=== PATIENT | male | born 1980 | race Caucasian/White ===

== ENCOUNTER 2016-09-29 11:53 | Inpatient (IN) | payer OTHER ==
[~2016-09-29] VITALS: Ht 172.7 cm; Wt 89.0 kg
[~2016-09-29 11:53] MED LIST: LEVE-5 PO
[2016-09-29] MEDS ORDERED: LORAZEPAM 2 MG INJ ONE (11:57)
[2016-09-29] MEDS ORDERED: LORAZEPAM 2 MG INJ IM ONE (12:00)
--- NOTE | 2016-09-29 12:03 | ERA ---
ER Documentation Chief Complaint Date/Time DATE: 09/29/16 TIME: 11:56 Chief Complaint HPI 35-year-old male long-standing seizure disorder who presents the emergency room with 2 seizures today. Unknown last seizure. The patient has been on Keppra in the past based on electronic medical record but states that he is no longer taking Keppra. The patient is postictal and somewhat combative upon arrival. Family member not here yet. The patient's glucose in the field was normal. It appears that he did in fact have 2 seizures today but returned to baseline in between. Remainder of HPI is limited. ROS Postictal Medications Home Meds Reported Medications Zonisamide* (Zonisamide*) 100 Mg Capsule, 300 MG PO DAILY, CAP 09/29/16 Discontinued Scripts Levetiracetam* (Keppra*) 500 Mg Tablet, 500 MG PO BID, #60 TAB Prov:SORIN VAN MD 09/03/15 Allergies Allergies: Coded Allergies: ibuprofen (Verified Allergy, Intermediate, HIVES, 12/30/15) naproxen (Verified Allergy, Intermediate, HIVES, 12/30/15) PMhx/Soc History of Surgery: No Anesthesia Reaction: No Hx Neurological Disorder: Yes (seizure) Hx Respiratory Disorders: No Hx Cardiac Disorders: No Hx Psychiatric Problems: No Hx Miscellaneous Medical Probl: No Hx Alcohol Use: No Hx Substance Use: No Hx Tobacco Use: No FmHx Family History: No diabetes Physical Exam Vitals Vital Signs Date Time Temp Pulse Resp B/P Pulse Ox O2 Delivery O2 Flow Rate FiO2 09/29/16 12:18 98.4 113 22 134/76 100 Room Air 09/29/16 11:58 98.8 113 22 134/74 98 Physical Exam General: Postictal, somewhat combative, asking for water, following simple commands Head: Normocephalic, atraumatic. Eyes: Pupils equally reactive, EOM intact ENT: Moist mucous membranes Neck: Supple, no lymphadenopathy Respiratory: Lungs clear bilaterally, no distress Cardiovascular: RRR, no murmurs, rubs, or gallops Abdominal: Soft, non-tender, non-distended, no peritoneal signs : Deferred MSK: No edema, no unilateral swelling, 5/5 strength Neurologic: Alert and oriented to person, somewhat postictal, moving all extremities, normal speech, no focal weakness, no cerebellar signs Skin: No rash Psych: Normal mood Result Diagram: 09/29/16 1220 09/29/16 1155 Results 24 hrs Laboratory Tests Test 09/29/16 11:55 09/29/16 12:20 09/29/16 12:28 Sodium Level 144mmol/L Potassium Level 4.5mmol/L Chloride Level 112mmol/L Carbon Dioxide Level 12mmol/L Anion Gap 25 Blood Urea Nitrogen 11mg/dl Creatinine 1.42mg/dl Glucose Level 142mg/dl Calcium Level 8.6mg/dl Phenytoin (Dilantin) Level < 3.0ug/ml Valproic Acid (Depakene) Level < 10ug/ml Carbamazepine (Tegretol) Level < 3.0ug/ml White Blood Count 20.910^3/ul Red Blood Count 5.4710^6/ul Hemoglobin 16.1g/dl Hematocrit 48.7% Mean Corpuscular Volume 89.0fl Mean Corpuscular Hemoglobin 29.4pg Mean Corpuscular Hemoglobin Concent 33.1g/dl Red Cell Distribution Width 13.3% Platelet Count 55521^3/UL Mean Platelet Volume 12.2fl Neutrophils % 83.1% Lymphocytes % 9.7% Monocytes % 5.7% Eosinophils % 0.2% Basophils % 0.3% Nucleated Red Blood Cells % 0.0/100WBC Neutrophils # 17.310^3/ul Lymphocytes # 2.010^3/ul Monocytes # 1.210^3/ul Eosinophils # 0.110^3/ul Basophils # 0.110^3/ul Nucleated Red Blood Cells # 0.010^3/ul Bedside Glucose 128mg/dL Current Medications Medications (Trade) Dose Ordered Sig/John Route PRN Reason Start Time Stop Time Status Last Admin Dose Admin Lorazepam 1 mg 1 mg ONCE ONCE IM 09/29/16 12:00 09/29/16 12:01 DC 09/29/16 11:59 Phenytoin 1000 mg/ Sodium Chloride 100 ml @ 200 mls/hr ONCE STAT IVPB 09/29/16 14:35 09/29/16 15:04 Sodium Chloride (NS) 1,000 ml @ 1,000 mls/hr Q1H STAT IV 09/29/16 14:54 09/29/16 15:53 Procedures/MDM LAB INTERPRETATION: Leukocytosis, mild renal insufficiency MEDICAL DECISION MAKING: The patient presents to the emergency room with 2 seizures today that are very consistent with his prior seizure history and generalized tonic-clonic seizure with spontaneous resolution. Accu-Chek normal. This is likely a breakthrough seizure, consider medication noncompliance. His electronic medical records suggest Keppra but the patient states that he is no longer taking Keppra. He does not know the name of the medication that he is taking. The patient cannot give further history and no further history is obtained in the electronic medical record. Electrolytes will be sent including levels for Dilantin, Depakote, carbamazepine. We do not have Keppra levels readily available in the emergency room. The patient was given 1 mg of Ativan IM for seizure prophylaxis. Seizure precautions initiated. No signs of increased intracranial pressure or infectious process such as meningitis. No indication for CBC lumbar puncture or CT imaging of the brain. ER COURSE: The patient's has arrived and states that the patient is taking zonisamide. He has compliance with his medications. His last seizure was March. He had 3 seizures today but returned to baseline. Given the frequency of seizures, this is atypical and I would recommend hospitalization. Dilantin load. The patient did have leukocytosis but no fever no recent signs of infection he has no meningismus on exam. This is likely secondary to demargination in the setting of seizure. No signs of infection currently. The patient was given IV fluids and continues to be resting comfortably. I kept the patient and/or family informed of laboratory and diagnostic imaging results throughout the emergency room course. DISPOSITION PLAN: Medical surgical admission for management of seizure CONSULTATION: Accepting care team and consultations: I discussed the current laboratory data, diagnostic imaging and emergency care provided. Admitting team: Dr. Young Admitting team indication: Insurance directed Departure Diagnosis: Primary Impression: Generalized tonic-clonic seizure Additional Impressions: Mild dehydration Acute renal insufficiency Leukocytosis Qualified Code: D72.829 - Leukocytosis, unspecified type Condition: Stable ALEX ROSE MD Sep 29, 2016 12:03
[2016-09-29 13:05] LABS: ANION GAP 25 (8-16); BLOOD UREA NITROGEN 11 mg/dl (7-20); CALCIUM 8.6 mg/dl (8.4-10.2); CARBON DIOXIDE 12 mmol/L (21-31); CHLORIDE 112 mmol/L (97-110); CREATININE 1.42 mg/dl (0.61-1.24); GLUCOSE 142 mg/dl (70-220); POTASSIUM 4.5 mmol/L (3.5-5.1); SODIUM 144 mmol/L (135-144)
[2016-09-29 13:10] LABS: CARBAMAZEPINE (TEGRETOL) < 3.0 ug/ml (8.0-12.0); VALPROATE < 10 ug/ml (50-100)
[2016-09-29 13:23] LABS: ADD SCAN DIFF NO
[2016-09-29 13:25] LABS: BASOPHIL # 0.1 10^3/ul (0.0-0.1); BASOPHILS % 0.3 % (0.0-2.0); EOSINOPHILS # 0.1 10^3/ul (0.0-0.5); EOSINOPHILS % 0.2 % (0.0-7.0); HEMATOCRIT 48.7 % (42.0-52.0); HEMOGLOBIN 16.1 g/dl (14.0-18.0); LYMPHOCYTES % 9.7 % (15.0-51.0); MEAN CORPUSCULAR HEMOGLOBIN 29.4 pg (29.0-33.0); MEAN CORPUSCULAR HGB CONC 33.1 g/dl (32.0-37.0); MEAN PLATELET VOLUME 12.2 fl (7.4-10.4); MONOCYTE # 1.2 10^3/ul (0.3-0.9); MONOCYTES % 5.7 % (0.0-11.0); NEUTROPHIL # 17.3 10^3/ul (1.6-7.5); NEUTROPHILS % 83.1 % (39.0-77.0); PLATELET COUNT 236 10^3/UL (140-415); RED BLOOD COUNT 5.47 10^6/ul (4.70-6.10); RED CELL DISTRIBUTION WIDTH 13.3 % (11.5-14.5); WHITE BLOOD COUNT 20.9 10^3/ul (4.8-10.8)
[2016-09-29] MEDS ORDERED: ZONI100C48 PO (13:25)
[2016-09-29] MEDS ORDERED: PHENYTOIN 1,000 MG in SOD CHLORIDE 0.9% 80 ML IVPB STA (14:35)
[2016-09-29] MEDS ORDERED: SOD CHLORIDE 0.9% 1,000 ML IV STA (14:54)
[2016-09-29 15:00] VITALS: TEMP 98
[2016-09-29] MEDS ORDERED: ACETAMINOPHEN 325 MG TAB PO PRN ×2 (15:00→17:00)
[2016-09-29] MEDS ORDERED: ONDANSETRON 4 MG INJ IV PRN ×2 (15:00→18:00)
[2016-09-29 16:45] VITALS: BP 144/90; PULSE 94; RESP 22
[2016-09-29] MEDS ORDERED: ONDANSETRON 4 MG TAB PO PRN (17:00)
[2016-09-29] MEDS ORDERED: HYDROCODONE/APAP (5/325) TAB PO PRN (17:00)
[2016-09-29] MEDS ORDERED: NACL 0.9% 3 ML SYG IV SCH (17:00)
[2016-09-29 17:03] VITALS: Ht 172.7 cm; Wt 89.0 kg
[2016-09-29] MEDS: SOD CHLORIDE 0.9% 1,000 ML IV SCH (17:56)
[2016-09-29] MEDS ORDERED: LORAZEPAM 2 MG INJ IV PRN (18:00)
--- NOTE | 2016-09-29 18:01 | HP ---
Date/Time of Note Date/Time of Note DATE: 09/29/16 TIME: 17:46 Assessment/Plan VTE Prophylaxis VTE Prophylaxis Intervention: ambulation Assessment/Plan Assessment/Plan 35 yo M with 1. Breakthrough seizures 2. hx of heavy substance use PLAN: admit / MRI / EEG / Neurology review for med mgt / PRN ativan for seizures / continue home zonisamide Utox / SW consult to help provide resources to help with substance abuse Unable to enrollment counselor patient at this time about substance use because he wants his family present at bedside and brother has requested that parents not know about substance use. Supportive care / seizure precautions. Prophylaxis : ambulation HPI/ROS Admit Date/Time Admit Date/Time Sep 29, 2016 at 14:57 Hx of Present Illness PRESENTING COMPLAINT: seizures HISTORY OF PRESENTING COMPLAINT: This is a 35-year-old male who suddenly started having seizures about 3 years ago but per reports from him and his family is finally getting them under control on a new drugs on a semi-which she was recently started on April of this year. The patient states that his seizures were unprovoked and started suddenly. For most of last year the patient had regular seizures and regular hospitalizations until he was started on this medication with good control. His last seizure was in April of this year and has not had any seizures since. Overnight stroke this morning the patient had 3 witnessed seizures by his and was brought to the emergency room for further evaluation. He is being admitted for neurology review and possible review of his medication. The patient denies history of brain tumor history of cardiac or neurologic disease, he also denies history of substance or drug use. However please see my notes and social history. The patient's brother however states that the patient heavily abuses heroine as well as cannabinoids. His is concerned that seizures may be connected to mold, as they found mold in their apartment about the time he started having seizures. He however has not have chronic cough, he has not had a chronic rhinorrhea, he has been told in the past that he may have sinus disease and per report he was never treated for this. His states that his outpatient neurologist states that the sinus disease may be contributory to his seiz he has no new symptoms at this time except for lethargy and muscle sorenessures, hence she is requesting reevaluation for this and possible treatments.. ROS 12 point review if systems was done and pertinent findings are as noted. PMH/Family/Social Past Medical History * seizure d/o x3 years Past Surgical History Past Surgical Hx: no surgical history Family History Significant Family History: no pertinent family hx (Patient has no family history of seizures) Social History Patient denies tobacco or substance abuse however his brother called me aside to notify me that the patient smokes marijuana heavily almost every minute of the day, and he does have a history of heroine use as well. His brother feels his seizures are connected to his heavy drug use. He doesn't mind being quoted. Smoking Status: Never smoker Exam/Review of Systems Vital Signs Vitals VS - Last 72 Hours, by Label Date Time Temp Pulse Resp B/P Pulse Ox O2 Delivery O2 Flow Rate FiO2 09/29/16 16:45 98.4 94 22 144/90 97 Room Air 09/29/16 15:00 98.0 110 20 122/80 100 Room Air 09/29/16 12:18 98.4 113 22 134/76 100 Room Air 09/29/16 11:58 98.8 113 22 134/74 98 Vital Signs Date Time Temp Pulse Resp B/P Pulse Ox O2 Delivery O2 Flow Rate FiO2 09/29/16 16:45 98.4 94 22 144/90 97 Room Air Exam Exam GENERAL APPEARANCE: Well developed, well nourished, in no acute distress. SKIN: Gross inspection of the skin reveals no rashes, ulcerations or petechiae. HEENT: The sclerae were anicteric and conjunctivae were pink and moist. Extraocular movements were intact and pupils were equal, round, and reactive to light with normal accommodation. External inspection of the ears and nose showed no scars, lesions, or masses. Posterior pharynx was clear of erythema or exudate NECK: Supple and symmetric. There was no thyroid enlargement, and no tenderness , or masses were felt. CHEST: Normal AP diameter and movement . LUNGS: Auscultation of the lungs revealed normal breath sounds without any other adventitious sounds or rubs. CARDIOVASCULAR: There was a regular rate and rhythm without any murmurs, gallops , rubs. The carotid pulses were normal and 2+ bilaterally without bruits. Radial pulses were 2+ and symmetric. ABDOMEN: Soft and nontender with normal bowel sounds. No ascites was noted. MUSCULOSKELETAL: There was no tenderness or effusions noted. Muscle strength and tone were normal. EXTREMITIES: No cyanosis, clubbing or edema. NEUROLOGIC: Alert and oriented x 3. Normal affect PSYCHIATRIC: depressed affect and lethargic Labs Result Diagram: 09/29/16 1220 09/29/16 1155 Medications Medications Current Medications Ondansetron HCl (Zofran Tab) 4 mg Q6H PRN PO NAUSEA AND/OR VOMITING; Start at 17:00 Acetaminophen (Tylenol Tab) 650 mg Q6H PRN PO PAIN LEVEL 1-3 OR FEVER; Start at 17:00 Acetaminophen/ Hydrocodone Bitart ([place] (5/325)) 1 tab Q6H PRN PO MODERATE PAIN LEVEL 4-6; Start 09/29/16 at 17:00 Enoxaparin Sodium (Lovenox) 40 mg DAILY SC ; Start 09/30/16 at 09:00 Zonisamide (Zonegran) 300 mg DAILY PO ; Start 09/29/16 at 18:00; Status UNWESLY KAHN Sep 29, 2016 17:57
[2016-09-29 20:20] VITALS: BP 152/89; RESP 18
[2016-09-29] MEDS: VALPROIC ACID 250 MG CAP PO SCH (21:12)
[2016-09-29] MEDS: ZONISAMIDE 100 MG CAP PO SCH (21:12)
--- NOTE | 2016-09-29 21:48 | CONS ---
DATE OF ADMISSION: 09/29/2016 DATE OF CONSULTATION: HISTORY OF PRESENT ILLNESS: The patient is a 35-year-old man. He has a past medical history of sei zure disorder in which the patient is on zonisamide 300 mg. The patient using marijuana and possibl e heroin, which I get a history from the family. The patient does not remember what medication he t akes or what happened. PHYSICAL EXAMINATION: GENERAL: On exam today, the patient is alert, awake. Looks confused. CRANIAL NERVES: II: Pupils equal on both sides, reactive to light. III, IV, and : Extraocular muscles intact. No nystagmus. V: Equal sensation to face. VII: ____. VIII: Decreased hearing bilaterally. IX, X: Elevates palate. XII: Elevates shoulder 5/5. XII: With straight tongue. MOTOR: Moving both upper and lower extremities. SENSATION: Decreased for glove and sock area. ____ temperature. COORDINATION: [id number] testing intact. HEART: With regular rate and rhythm. LUNGS: Equal breath sounds. ABDOMEN: Soft, relaxed, nondistended, no tenderness. CURRENT MEDICATIONS: Include: 1. Lovenox 40 mg subcutaneous once a day. 2. Zonisamide 300 mg once a day. 3. Ativan 2 mg every 4 hours IV as needed. 4. Zofran 4 mg every 6 hours as needed. 5. Sodium chloride as needed. 6. IV flush. 7. Tylenol 650 mg every 4 hours as needed. 8. [place] 5/325 mg every 6 hours as needed. LABORATORY DATA: His blood tests today with WBC is 20.9. Creatinine 1.4. ASSESSMENT AND PLAN: The patient is 35 years old, underlying seizure activity. 1. I am going to add to him Depakote 500 mg twice a day for seizure prevention. Follow up the bradley ent with electroencephalogram. 2. I will give the patient seizure precautions and aspiration precautions. 3. Leukocytosis. Probably secondary to underlying infection. Follow up the patient with pancultur e, chest x-ray, CBC. ____ underlying stress, increased WBC, however, will follow up the patient wit h CBC in a.m. 4. Underlying drug use. 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 Will send the urine and bloo d for drug screen. Dictated By: AYSHA GALVAN MD NA/NTS Conf#: [id number] DID#: [id number] CC: WESLY LOOMIS MD;*End*
[2016-09-29 22:13] LABS: BENZODIAZEPINES Negative (NEGATIVE); CANNABINOIDS Positive (NEGATIVE); COCAINE Negative (NEGATIVE); OPIATES Negative (NEGATIVE)
[2016-09-29 22:35] LABS: BARBITURATES Negative (NEGATIVE)
[2016-09-30] MEDS: SOD CHLORIDE 0.9% 1,000 ML IV SCH ×4 (04:00→20:07)
[2016-09-30 05:06] LABS: ADD SCAN DIFF NO
[2016-09-30 05:08] LABS: BASOPHILS % 0.2 % (0.0-2.0); EOSINOPHILS # 0.1 10^3/ul (0.0-0.5); EOSINOPHILS % 0.9 % (0.0-7.0); HEMATOCRIT 40.3 % (42.0-52.0); HEMOGLOBIN 13.8 g/dl (14.0-18.0); LYMPHOCYTES # 2.6 10^3/ul (0.8-2.9); LYMPHOCYTES % 29.3 % (15.0-51.0); MEAN CORPUSCULAR HEMOGLOBIN 29.7 pg (29.0-33.0); MEAN CORPUSCULAR HGB CONC 34.2 g/dl (32.0-37.0); MEAN CORPUSCULAR VOLUME 86.7 fl (82.0-101.0); MEAN PLATELET VOLUME 11.3 fl (7.4-10.4); MONOCYTE # 0.7 10^3/ul (0.3-0.9); MONOCYTES % 7.5 % (0.0-11.0); NEUTROPHIL # 5.4 10^3/ul (1.6-7.5); NEUTROPHILS % 61.6 % (39.0-77.0); PLATELET COUNT 157 10^3/UL (140-415); RED BLOOD COUNT 4.65 10^6/ul (4.70-6.10); RED CELL DISTRIBUTION WIDTH 13.3 % (11.5-14.5); WHITE BLOOD COUNT 8.8 10^3/ul (4.8-10.8)
[2016-09-30 05:37] LABS: ALBUMIN 4.4 g/dl (3.3-4.9); BILIRUBIN,INDIRECT 0.5 mg/dl (0-1.1); BILIRUBIN,TOTAL 0.5 mg/dl (0.2-1.3); CALCIUM 8.7 mg/dl (8.4-10.2); CHOL/HDL RATIO 4.9 RATIO; CREATININE 1.14 mg/dl (0.61-1.24); MAGNESIUM 2.4 mg/dl (1.7-2.5); POTASSIUM 3.8 mmol/L (3.5-5.1); TOTAL PROTEIN 6.7 g/dl (6.1-8.1)
[2016-09-30 06:03] LABS: THYROID STIMULATING HORMONE 0.506 MIU/L (0.465-4.680)
[2016-09-30 07:48] VITALS: BP 118/66; RESP 18
[2016-09-30] MEDS: VALPROIC ACID 250 MG CAP PO SCH ×2 (08:48→20:39)
[2016-09-30] MEDS: ZONISAMIDE 100 MG CAP PO SCH (08:50)
[2016-09-30] MEDS: ENOXAPARIN 40 MG/0.4 ML SYG SC SCH (08:59)
[2016-09-30] MEDS ORDERED: ALBUTEROL/IPRATROPIUM (NEB) 3 ML AMP HHN STA (11:06)
[2016-09-30] MEDS ORDERED: ALBUTEROL/IPRATROPIUM (NEB) 3 ML AMP HHN PRN (11:30)
--- NOTE | 2016-09-30 15:48 | RADRPT ---
PROCEDURE: MR Brain without contrast. CLINICAL INDICATION: Seizure, neurologic deficit TECHNIQUE: An MRI of the brain was performed on a high-resolution MR scanner utilizing the followi ng sequences: Sagittal and axial T1 weighted, axial T2 weighted, axial FLAIR, coronal GRE, coronal F LAIR and 3 SPGR, and axial diffusion weighted with ADC mapping. Images were reviewed high-resolution PACS workstation. No contrast was administered. COMPARISON: Correlation head CT 10/16/2015 FINDINGS: No acute parenchymal hemorrhage, mass effect, or midline shift. No evidence of recent infarct. Hobbs white differentiation is preserved. No evidence of mesial temporal sclerosis or cortical enceph alomalacia. A few tiny bilateral frontal white matter FLAIR hyperintense foci are nonspecific. No suspicious parenchymal hypointense signal abnormalities are seen on the GRE images to suggest the presence of blood degradation products. The ventricles are normal in size for age. Normal flow voids are visible in the proximal intracranial arteries suggesting their patency. Bilateral frontal, ethmoid, maxillary, and sphenoid sinus mucosal thickening. IMPRESSION: No acute intracranial abnormality identified. No evidence of mesial temporal sclerosis or cortical encephalomalacia. A few tiny bilateral frontal white matter FLAIR hyperintense foci are nonspecific. Pansinus mucosal thickening. RPTAT: AA .Valeriy Shahid MD, MD Date Time Electronically viewed and signed by .Valeriy Shahid MD, on 09/30/2016 15:48 .T/
[2016-09-30 20:00] VITALS: BP 139/87; RESP 18
[2016-09-30] MEDS ORDERED: ZONISAMIDE 100 MG CAP PO SCH (21:00)
[2016-10-01] MEDS: SOD CHLORIDE 0.9% 1,000 ML IV SCH ×4 (00:50→09:46)
[2016-10-01 06:26] LABS: ADD SCAN DIFF NO
[2016-10-01 06:29] LABS: BASOPHILS % 0.4 % (0.0-2.0); EOSINOPHILS # 0.1 10^3/ul (0.0-0.5); EOSINOPHILS % 1.7 % (0.0-7.0); HEMATOCRIT 40.5 % (42.0-52.0); HEMOGLOBIN 13.6 g/dl (14.0-18.0); LYMPHOCYTES # 2.6 10^3/ul (0.8-2.9); MEAN CORPUSCULAR HEMOGLOBIN 29.4 pg (29.0-33.0); MEAN CORPUSCULAR HGB CONC 33.6 g/dl (32.0-37.0); MEAN CORPUSCULAR VOLUME 87.5 fl (82.0-101.0); MEAN PLATELET VOLUME 11.9 fl (7.4-10.4); MONOCYTE # 0.6 10^3/ul (0.3-0.9); MONOCYTES % 8.8 % (0.0-11.0); NEUTROPHIL # 3.8 10^3/ul (1.6-7.5); NEUTROPHILS % 52.8 % (39.0-77.0); PLATELET COUNT 146 10^3/UL (140-415); RED BLOOD COUNT 4.63 10^6/ul (4.70-6.10); RED CELL DISTRIBUTION WIDTH 13.2 % (11.5-14.5); WHITE BLOOD COUNT 7.3 10^3/ul (4.8-10.8)
[2016-10-01 07:14] LABS: CREATININE 0.93 mg/dl (0.61-1.24); MAGNESIUM 2.1 mg/dl (1.7-2.5); PHOSPHORUS 3.4 mg/dl (2.5-4.9)
--- NOTE | 2016-10-01 07:42 | PN ---
DATE: 09/30/2016 SUBJECTIVE: The patient denies any seizure activity last night, does complain of some nasal irritat ion. OBJECTIVE VITAL SIGNS: Stable. GENERAL: The patient is lying in bed, family members are at the bedside. No acute distress. HEENT: Pupils equal, round, reactive to light. Extraocular muscles intact. NECK: Supple, no thyromegaly. LUNGS: Clear to auscultation bilaterally. CARDIOVASCULAR: S1, S2. No rubs or gallops. ABDOMEN: Soft, nontender, nondistended. Normal bowel sounds. No rebound or guarding. MUSCULOSKELETAL: No lower extremity edema bilaterally. NEUROLOGIC: No focal deficits. LABORATORY DATA: CBC is normal. Creatinine kinase is 1205. Comprehensive metabolic panel is sheyla l. Triglycerides are 215. The rest of the cholesterol panel is normal. His U-tox did show positive cannabis. Dilantin level yesterday was normal at 11.9. ASSESSMENT AND PLAN: A 35-year-old male with a history of seizures, comes in with breakthrough seizu res and history of heavy substance abuse. 1. Seizure activity again. Continue med/surg care. Followup EEG results and MRI brain results. Ap preciate neurology consult, follow up with their recommendations. The patient was started on depake ne and he is continued on Ativan p.r.n. and Zonegran. Continue those for now. 2. Leukocytosis, unclear source. No fevers. White count was normal this morning. Continue to [facility] for now. 3. ____ . Again, he had elevated creatinine kinase levels this morning. Denies any significant mus lucrecia pain. Continue IV fluids and monitor CK levels in the morning. 4. Gastrointestinal prophylaxis. Add H2 jeyson. 5. Deep venous thrombosis prophylaxis, Lovenox. Continue to follow. Dictated By: GLADIS BULLOCK Conf#: [id number] DID#: [id number]
[2016-10-01 07:51] VITALS: BP 144/86; RESP 18
[2016-10-01] MEDS: VALPROIC ACID 250 MG CAP PO SCH (09:06)
[2016-10-01] MEDS: ENOXAPARIN 40 MG/0.4 ML SYG SC SCH (09:36)
--- NOTE | 2016-10-01 10:10 | PN ---
Date/Time of Note Date/Time of Note DATE: 10/01/16 TIME: 10:06 Assessment/Plan VTE Prophylaxis VTE Prophylaxis Intervention: LMWH Lines/Catheters IV [facility] Peripheral IV Urinary Cath still in place: No Assessment/Plan Chief Complaint/Hosp Course ASSESSMENT AND PLAN: 35-year-old male with a history of seizures, comes in with breakthrough seizures and history of heavy substance abuse. 1. Seizure activity - no sz since admission. The patient was started on depakene and he is continued on Ativan p.r.n. and Zonegran. - Continue med/surg care, current meds. Followup EEG results (pending). - Appreciate neurology consult, follow up with their recommendations. 2. Leukocytosis, unclear source. No fevers. MRI did demonstrate pansinusitis White count was normal the last 2 days. - start PO Augmentin, Continue to monitor for now. 3.Early rhabdo - Again, he had elevated creatinine kinase levels, but trending down. Denies any significant muscle pain. -Continue IV fluids and monitor CK levels in the morning. 4. Gastrointestinal prophylaxis - H2 jeyson. 5. Deep venous thrombosis prophylaxis, Lovenox. Problems: Subjective 24 Hr Interval Summary Free Text/Dictation Per nursing, no sz activity last night. Exam/Review of Systems Vital Signs Vitals Vital Signs Date Time Temp Pulse Resp B/P Pulse Ox O2 Delivery O2 Flow Rate FiO2 10/01/16 07:51 97.9 84 18 144/86 96 09/30/16 12:54 21 09/29/16 16:45 Room Air Intake and Output 09/30/16 09/30/16 10/01/16 15:00 23:00 07:00 Intake Total 300 ml 1960 ml 2460 ml Output Total 1375 ml Balance 300 ml 1960 ml 1085 ml Exam GENERAL: The patient is lying in bed, no acute distress. HEENT: Pupils equal, round, reactive to light. Extraocular muscles intact. NECK: Supple, no thyromegaly. LUNGS: Clear to auscultation bilaterally. CARDIOVASCULAR: S1, S2. No rubs or gallops. ABDOMEN: Soft, nontender, nondistended. Normal bowel sounds. No rebound or guarding. MUSCULOSKELETAL: No lower extremity edema bilaterally. NEUROLOGIC: No focal deficits. Results Result Diagram: 10/01/16 0544 10/01/16 0544 Results 24 hrs Laboratory Tests Test 10/01/16 05:44 White Blood Count 7.3 Red Blood Count 4.63 L Hemoglobin 13.6 L Hematocrit 40.5 L Mean Corpuscular Volume 87.5 Mean Corpuscular Hemoglobin 29.4 Mean Corpuscular Hemoglobin Concent 33.6 Red Cell Distribution Width 13.2 Platelet Count 146 Mean Platelet Volume 11.9 H Neutrophils % 52.8 Lymphocytes % 36.0 Monocytes % 8.8 Eosinophils % 1.7 Basophils % 0.4 Nucleated Red Blood Cells % 0.0 Neutrophils # 3.8 Lymphocytes # 2.6 Monocytes # 0.6 Eosinophils # 0.1 Basophils # 0.0 Nucleated Red Blood Cells # 0.0 Sodium Level 143 Potassium Level 4.0 Chloride Level 115 H Carbon Dioxide Level 19 L Anion Gap 13 Blood Urea Nitrogen 8 Creatinine 0.93 Glucose Level 86 Calcium Level 9.0 Phosphorus Level 3.4 Magnesium Level 2.1 Creatine Kinase 809 H Medications Medications Current Medications Acetaminophen (Tylenol Tab) 650 mg Q6H PRN PO PAIN LEVEL 1-3 OR FEVER Last administered on 09/29/16 17:56; Admin Dose 650 MG; Start 09/29/16 at 17:00 Acetaminophen/ Hydrocodone Bitart ([place] (5/325)) 1 tab Q6H PRN PO MODERATE PAIN LEVEL 4-6; Start 09/29/16 at 17:00 Enoxaparin Sodium (Lovenox) 40 mg DAILY SC Last administered on 10/01/16 09:36 ; Admin Dose 40 MG; Start 09/30/16 at 09:00 Lorazepam (Ativan) 2 mg Q4H PRN IV seizures; Start 09/29/16 at 18:00 Ondansetron HCl (Zofran Inj) 4 mg Q6H PRN IV NAUSEA AND/OR VOMITING; Start at 18:00 Valproic Acid 500 mg 500 mg BID PO Last administered on 10/01/16 09:06; Admin Dose 500 MG; Start 09/29/16 at 21:00 Sodium Chloride (NS) 1,000 ml @ 150 mls/hr Q6H40M IV Last administered on 10/01 09:46; Admin Dose 150 MLS/HR; Start 09/30/16 at 11:30 Zonisamide (Zonegran) 300 mg HS PO Last administered on 6/19/17at 20:39; Admin Dose 300 MG; Start 09/30/16 at 21:00 Procedures Procedures MRI brain: IMPRESSION: No acute intracranial abnormality identified. No evidence of mesial temporal sclerosis or cortical encephalomalacia. A few tiny bilateral frontal white matter FLAIR hyperintense foci are nonspecific. Pansinus mucosal thickening. GLADIS MOORE Oct 01, 2016 10:10
[2016-10-01] MEDS ORDERED: VALP250C PO (11:23)
[2016-10-01] MEDS ORDERED: AMOX1TAB10 PO (11:23)
--- NOTE | 2016-10-01 11:23 | PDOCDIS ---
Discharge Instructions CONDITION Patient Condition: Stable HOME CARE INSTRUCTIONS: Special Diet: 2000 brit diet ACTIVITY: Activity Restrictions: Slowly Increase Activity FOLLOW UP/APPOINTMENTS Appointments Please follow up with Neurologist in the clinic in 1 week for your final EEG results. Take your medications as prescribed, if you experience any further seizure activity, please call 911, Neurologist, or go to ER. GLADIS MOORE Oct 01, 2016 11:22
[2016-10-01] MEDS ORDERED: AMOXICILLIN/CLAV 875 MG TAB PO SCH (11:30)
--- NOTE | 2016-10-01 12:01 | DS ---
DATE OF ADMISSION: 09/29/2016 DATE OF DISCHARGE: 10/01/2016 HOSPITAL COURSE: A 35-year-old male originally admitted on 09/29/2016, being discharged home on . The patient came in with breakthrough seizures, history of heavy substance abuse. He was admitted. He was seen by neurology team and underwent a brain MRI that showed no acute intracranial abnormalities. There was some parasinus mucosal thickening. The patient was started on new seizur e medicine. He was continued on his zonisamide and then he was also placed on Depakene. The patien t had no seizure activity while he was here. He had an EEG performed, the results are still pending by the time of discharge. He was able to ambulate and tolerate a p.o. diet. He had complained of some sinus issues, we started him on antibiotics as well for that, although he had no leukocytosis o r fevers on the day of discharge. He did have leukocytosis on admission. After speaking with neuro logy team today, despite the pending results of the EEG, he will be discharged home today in improve d condition. DISCHARGE MEDICATIONS: He will be sent with the following medications: 1. Augmentin 875 mg b.i.d. for 7 days. 2. Depakene 500 mg b.i.d. 3. He will continue zonisamide 300 mg daily. FOLLOWUP: He will need to follow up with neurology team in the clinic in the next 1 week, and was g iven strict return precautions for any further seizure activity. FINAL DIAGNOSES: 1. Breakthrough seizures, possibly secondary to drug abuse or noncompliance, now improved. 2. History of heavy substance abuse. Counseled on cessation including stopping cannabis. 3. History of prior seizure activity at home Time spent discharging the patient 45 minutes. Dictated By: GLADIS BULLOCK Conf#: [id number] DID#: [id number]
--- NOTE | 2016-10-01 21:10 | NEURPT ---
DATE: The patient is 35 years old with positive underlying seizure activity. EEG done using 10-20 International electrode system with photic stimulation. Bilateral occipital he mispheres showed alpha waves 8 to 9 Hz ____ amplitude symmetric bilateral. Photic stimulation did n ot elicit drive. Some ____ recorded. IMPRESSION: This is normal electroencephalogram. No epileptiform discharge or seizure activity is recorded. Followup EEG may be needed if clinically indicated. Normal EEG does not exclude the clin ic history of seizure. Followup EEG may be needed. Dictated By: AYSHA CHOUDHARY/FLETCHER Conf#: [id number] DID#: [id number]
== END 2016-10-01 12:55 | disposition home or self-care (01) | DRG 101 ==
LOC: E/R 11:53 → MS2 14:57
PROVIDERS: ADMIT Family Medicine; ATTEND Family Medicine
PROC: 4A00X4Z Measurement of Central Nervous Electrical Activity, External Approach (ICD-10-PCS; principal; 2016-10-01)
DX: G40.909 Epilepsy, unspecified, not intractable, without status epilepticus (principal); E87.2 Acidosis; M62.82 Rhabdomyolysis; E86.0 Dehydration; D72.829 Elevated white blood cell count, unspecified; N28.9 Disorder of kidney and ureter, unspecified; F12.10 Cannabis abuse, uncomplicated
CPT/HCPCS: 36415; 70551; 80048; 80061; 80076; 80156; 80164; 80184; 80185; 80307; 82550; 82962; 83036; 83735; 84100; 84443; 85025; 94664; 95819; 96365; 96372; J1165; J1650; J2060; J7030

== ENCOUNTER 2019-01-08 00:02 | Emergency (ER) | payer OTHER ==
[~2019-01-08] VITALS: Ht 172.7 cm; Wt 84.8 kg
[~2019-01-08 00:02] MED LIST changes: +AMOX1TAB10 PO; +HYDR-4011 PO; -LEVE-5 PO; +ONDA4TAB8 PO; +TAMS-14 PO; +VALP250C PO; +ZONI100C48 PO
[2019-01-08 00:05] VITALS: BP 157/91; PULSE 89; RESP 16; Ht 172.7 cm; Wt 84.8 kg
[2019-01-08] MEDS ORDERED: HYDROCODONE/APAP (5/325) TAB PO ONE (02:00)
== END 2019-01-08 02:17 | disposition home or self-care (01) ==
LOC: FTE 00:02
DX: N20.0 Calculus of kidney (principal); N23 Unspecified renal colic; R31.9 Hematuria, unspecified
CPT/HCPCS: 81001; 81003; Z7502; Z7610; 99283